=== PATIENT | male | born 1995 | race Caucasian/White ===

== ENCOUNTER 2017-09-24 12:23 | Emergency (ER) | payer OTHER ==
[2017-09-24 12:32] VITALS: RESP 18; TEMP 98.1
--- NOTE | 2017-09-24 12:58 | EDPHY ---
H & P Time Seen by Provider: 09/24/17 12:49 HPI/ROS: CHIEF COMPLAINT: Right wrist pain HISTORY OF PRESENT ILLNESS: 22-year-old male with prior history of right boxer' s fracture 3 weeks ago fell snowboarding today complaining of ulnar wrist pain. He has not been wearing his ulnar gutter splint. No paresthesia. No sensory or motor deficits. PHYSICAL EXAM (Prior to examination, patient consented to physical exam, hands were washed and my usual and customary physical exam procedures followed) 1) GENERAL: Well-developed, well-nourished, alert and oriented. Appears to be in no acute distress. 2) HEAD: Normocephalic 3) HEENT: Pupils equal, round, reactive to light bilaterally. 4) LUNGS: Breathing comfortably. 5) MUSCULOSKELETAL: Tender to palpation distal ulna. Soft compartments. Normal coloration. 6) SKIN: Intact 7) VASCULAR: pulses and cap refill present are brisk 8) NEUROLOGIC: Radial, ulnar, median nerve function intact with no deficits appreciated on exam DIFFERENTIAL DIAGNOSIS: in no particular order including but not limited to fracture, sprain, compartment syndrome Procedure: Splint Ulnar gutter Ortho Glass splint was applied by ER photo technician. After application of the splint I returned and re-examined the patient. The splint was adequately immobilizing the joint and distal to the splint the patient's circulation and sensation were intact. Patient shows no signs of compartment syndrome. Was given orthopedic precautions. Smoking Status: Never smoked Constitutional: Initial Vital Signs Temperature (C) 36.7 C 09/24/17 12:30 Heart Rate 86 09/24/17 12:30 Respiratory Rate 18 09/24/17 12:30 Blood Pressure 147/70 H 09/24/17 12:30 O2 Sat (%) 94 09/24/17 12:30 O2 Delivery Mode Room Air Allergies/Adverse Reactions: No Known Allergies Allergy (Unverified 09/24/17 12:32) Home Medications: Medication Instructions Recorded NK [No Known Home Meds] 09/24/17 MDM/Departure - [facility] ED Course/Re-evaluation: I reviewed the patient's x-ray with him. There is noted definitive evidence of acute wrist fracture. He is noted to have a subacute boxer's fracture for which he has not been keeping this area immobilized. He has been placed in ulnar gutter splint, recommend follow up with orthopedics. No evidence of compartment syndrome or neurovascular compromise. Plan is discharge. He feels comfortable with discharge usual and customary orthopedic precautions and instructions provided. Care of patient under supervision of secondary supervising physician Dr Billy Clay. - Depart Disposition: Home, Routine, Self-Care Clinical Impression: Wrist pain, right, Right hand boxer's fracture Condition: Good Instructions: Wrist Injury (ED) Additional Instructions: Return to the ER immediately if you experience discoloration, have worsening pain, numbness, tingling, or any other symptoms that concern you. If you received x-rays in the emergency department today, be advised, that ligamentous , tendon, muscular, and other non-bony injury cannot be fully ruled out. Try to keep your affected extremity elevated above the level of your chest, and keep cold packs on the affected area, for the next 48 hours. Adult Pain & Fever Control: We recommend Acetaminophen (Tylenol) and Ibuprofen (Motrin,Advil) for pain and fever control. When fever is high or pain severe, both drugs can be used at the same time, but at different intervals. Please note the time differences. Your dose is: Acetaminophen 650mg every 4 to 6 hours Ibuprofen 600mg every 6 hours with food OR Note: do not take Acetaminophen with Hydrocodone (Vicodin, Lortab) or Oycodone (Percocet). These medications also contain Acetaminophen. No more than 3000mg of Acetaminophen should be taken in 24 hours (for an adult). Referrals: Jose Guadalupe Hollis MD [Medical Doctor] - 2-3 days without fail
[2017-09-24 13:38] VITALS: BP 128/78; PULSE 85; O2SAT 96
== END 2017-09-24 13:37 | disposition home or self-care (01) ==
DX: M25.531 Pain in right wrist (principal); S62.316D Displaced fracture of base of fifth metacarpal bone, right hand, subsequent encounter for fracture with routine healing; V00.311D Fall from snowboard, subsequent encounter